=== PATIENT | female | born 1955 | race Caucasian/White ===

== ENCOUNTER → 2017-05-02 | Outpatient (CLI) | payer OTHER ==
[~2017-05-02] MED LIST: B COMPLEX WITH1 EAC1; C-500500 MG; CALCIUM +D & M1 EACH; CARAFATE1 GM PO; DICYCLOMINE HCL20 MG PO; FOLIC ACID1 MG PO; FUROSEMIDE20 MG PO; HYDROCHLOROTHIA25 MG PO; IRON325 M1 PO; LACTULOSE10 GM/152 PO; LASIX20 MG PO; LIBRAX CAPSULE1 EACH PO; LIDODERM700 MG TOP; NAPROXEN500 MG PO; OMEPRAZOLE40 MG PO; ONE DAILY WOME1 EACH; OSTERA TABLET1 EACH; PANTOPRAZOLE SO40 MG PO; PREVACID30 MG PO; PROMETHAZINE HC25 M1 PO; PROPRANOLOL HCL40 MG PO; RELPAX20 MG PO; SERTRALINE HCL50 MG PO; SKELAXIN800 MG PO; TESSALON PERLE100 MG PO; TOPAMAX50 MG PO; ULTRAM50 MG PO; VITAMIN B-121000 MCG PO; VOLTAREN100 GM TOP; WOMEN'S DAILY1 EAC1 PO; ZOLOFT100 MG PO; ZOLOFT25 MG PO; proair INH
--- NOTE | 2017-05-02 13:59 | Diagnostic Imaging Report ---
EXAM: Bone mineral density study 05/02/2017 1:01 PM INDICATION: \S\FX PELVIS COMPARISON: None FINDINGS: Evaluation of the left hip and lumbar spine was performed. The study is technically adequate. The patient's fracture risk is compared to an age-matched control. Left femoral neck bone mineral density: 0.614 g/cm2, T-score is -2.1, Z-score is -0.8. Left hip total bone mineral density: 0.6 g/cm2, T-score is -2.8, Z-score is -1.8. Lumbar spine total bone mineral density: 0.798 gm/cm2, T-score is -2.3, Z-score is -0.7. IMPRESSION: Bone mineralization by WHO Classification is osteoporosis, the fracture risk is high. Signed by: Dr. Prashant Hinson MD on 05/02/2017 1:56 PM
--- NOTE | 2017-05-06 16:06 | Diagnostic Imaging Report ---
#[id number] - MGSCRBIL #BILATERAL DIGITAL SCREENING MAMMOGRAM WITH CAD: 05/02/2017 CLINICAL: Routine screening. Comparison is made to exams dated: 07/23/2015 mammogram, 11/28/2013 mammogram and 02/16/2012 mammogram - [facility]. Current study contains 4 films. There are scattered fibroglandular elements in both breasts. Current study was also evaluated with a Computer Aided Detection (CAD) system. There are benign calcifications in both breasts. No significant masses, calcifications, or other findings are seen in either breast. There has been no significant interval change. IMPRESSION: BENIGN There is no mammographic evidence of malignancy. A 1 year screening mammogram is recommended. The patient will be notified by letter of the results. Delano nunes/vivian:05/06/2017 09:43:14 Radius Grinder: Aga PHAN(R)(M), [facility] letter sent: Compared to Prior B9 Mammogram BI-RADS: 2 Benign
== END ==
LOC: MAMMO 12:50
PROVIDERS: ATTEND Internal Medicine
DX: Z12.31 Encounter for screening mammogram for malignant neoplasm of breast (principal); Z13.820 Encounter for screening for osteoporosis
CPT/HCPCS: 77080; G0202

== ENCOUNTER 2018-09-17 21:03 | Emergency (ER) | payer OTHER ==
[~2018-09-17] VITALS: Ht 162.6 cm; Wt 59.0 kg
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
[2018-09-17] MEDS ORDERED: IBUPROFEN 200 MG TAB PO STA (21:17)
[2018-09-17] MEDS ORDERED: IBUPROFEN 200 MG TAB ONE (21:27)
[2018-09-17] MEDS ORDERED: ONDANSETRON HCL 4 MG ORAL DISINTEGRATING TAB ONE (21:27)
[2018-09-17] MEDS ORDERED: ONDANSETRON HCL 4 MG ORAL DISINTEGRATING TAB PO ONE (21:30)
[2018-09-17] MEDS ORDERED: HYDROCODONE/APAP 5MG-325MG TAB PO ONE (21:30)
--- NOTE | 2018-09-17 21:55 | Diagnostic Imaging Report ---
Exam: Hand and Wrist X-Rays History: Fall ^[id number] ^2119 Comparison: None. Findings: Bones: Comminuted fracture of the distal radius with impaction. A fracture plane extends to the articular surface. Distal ulna is intact. Carpal bones are intact and normally aligned. Visualized bones of the digits are intact. Joints: Mild degenerative changes of the digits and degenerative changes of the trapezium and scaphoid. Soft Tissues: No abnormal soft tissue calcification or soft tissue defect. Impression: Comminuted, intra-articular fracture of the distal radius with impaction. Signed by: Dr. Noemi Arciniega MD on 09/17/2018 9:51 PM
== END 2018-09-17 22:10 | disposition home or self-care (01) ==
LOC: FSED 21:03
DX: S52.502A Unspecified fracture of the lower end of left radius, initial encounter for closed fracture (principal); W01.0XXA Fall on same level from slipping, tripping and stumbling without subsequent striking against object, initial encounter; Y93.02 Activity, running; Y92.019 Unspecified place in single-family (private) house as the place of occurrence of the external cause
CPT/HCPCS: 73110; 73130; 99283; Q0162

== ENCOUNTER → 2019-01-16 | Outpatient (CLI) | payer OTHER ==
--- NOTE | 2019-01-16 17:16 | Diagnostic Imaging Report ---
EXAMINATION: HAND 3+ VIEWS LEFT, WRIST COMPLETE LEFT INDICATION: Trauma COMPARISON: None FINDINGS: No acute fracture or dislocation. There are postoperative findings of prior open reduction internal fixation of distal radius fracture. The fracture line remains visible and there has been some interval bony bridging and early callus formation. Mild diffuse osteopenia. Scattered degenerative changes. IMPRESSION: No acute osseous injury. Postoperative findings of ORIF of distal radius fracture. Signed by: Mario Castillo MD on 01/16/2019 5:12 PM
== END ==
LOC: RAD 16:22
PROVIDERS: ATTEND Internal Medicine
DX: S69.92XA Unspecified injury of left wrist, hand and finger(s), initial encounter (principal); W19.XXXA Unspecified fall, initial encounter

== ENCOUNTER → 2019-01-18 | Outpatient (CLI) | payer OTHER ==
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
== END ==
LOC: CT 09:29
PROVIDERS: ATTEND Internal Medicine
DX: S00.83XA Contusion of other part of head, initial encounter (principal); W19.XXXA Unspecified fall, initial encounter
CPT/HCPCS: 70450

== ENCOUNTER → 2020-09-17 | Outpatient (CLI) | payer OTHER | LOC: MAMMO 08:35 | PROVIDERS: ATTEND Internal Medicine | DX: Z12.31 Encounter for screening mammogram for malignant neoplasm of breast (principal) | CPT/HCPCS: 77067 ==

== ENCOUNTER → 2021-12-21 | Outpatient (CLI) | payer MEDICARE | LOC: MAMMO 10:25 | PROVIDERS: ATTEND Internal Medicine | DX: Z12.31 Encounter for screening mammogram for malignant neoplasm of breast (principal) | CPT/HCPCS: 77067 ==

== ENCOUNTER → 2022-02-23 | Outpatient (CLI) | payer MEDICARE | LOC: RAD 12:55 | PROVIDERS: ATTEND Internal Medicine | DX: S92.351A Displaced fracture of fifth metatarsal bone, right foot, initial encounter for closed fracture (principal) ==